=== PATIENT | male | born 1960 | race African-American/Black ===

== ENCOUNTER 2023-10-23 13:47 | Emergency (ER) | payer SELFPAY ==
[~2023-10-23] VITALS: Ht 167.6 cm; Wt 75.9 kg
[2023-10-23 14:37] VITALS: BP 189/111; PULSE 94; RESP 18; TEMP 98.3; O2SAT 100
[2023-10-23] MEDS ORDERED: METH-653 MT (15:47)
[2023-10-23] MEDS ORDERED: IBUP-2029 MT (15:47)
== END 2023-10-23 16:59 | disposition home or self-care (01) ==
LOC: ER 14:47
DX: S33.5XXA Sprain of ligaments of lumbar spine, initial encounter (principal); V89.2XXA Person injured in unspecified motor-vehicle accident, traffic, initial encounter; Y93.89 Activity, other specified; Y92.89 Other specified places as the place of occurrence of the external cause; Y99.8 Other external cause status
CPT/HCPCS: 99283